=== PATIENT | female | born 1955 | race Caucasian/White ===

== ENCOUNTER 2016-12-24 08:19 | Emergency (ER) | payer SELFPAY ==
[2016-12-24 08:24] VITALS: BMI 33.5
--- NOTE | 2016-12-24 08:45 | DR.GENAD ---
HPI - PCP Primary Care Physician: BRIAN - HPI Comment HPI Comment: PATIENT FEELING SICK PAST 2 WEEKS. SHE IS WEAK AND GET COLD AND HOT CHILLS. COUGHING, PRODUCTIVE GREEN SPUTUM. NO DYSURIA. NAUSEATED BUT NOT VOMITING. POOR ORAL INTAKE. - Complaint/Symptoms Chief Complaint Doctors Comments: NAUSEA, DIARRHEA, BODY ACHES AND ABDOMINAL CRAMPING WITH COUGH FOR 2 WEEKS. Chief Complaint:: PT. C/O DIARRHEA, NAUSEA, CHILLS, BODY ACHES, NO APPEPTITE. - Nurses notes reviewed Nurses Notes Review: Yes - Source History Provided: Patient - Mode of Arrival Mode of Arrival: Ambulatory - Timing Onset of Chief Complaint: 12/22/16 Came on: Suddenly - Duration Duration: Constant Duration: Days - Severity Severity: Moderate PMH - PMH Past Medical History: Yes Past Medical History: Anxiety, Depression, Hypertension, Seizures Past Surgical History: Yes Surgical History: Tonsillectomy, Other Past Surgical History Comment: TUBAL LIGATION, MASS REMOVED FROM LEFT FRONTAL LOBE - Family History History of Family Medical Conditions: Yes Family Medical History: Diabetes Mellitus, [place], Coronary Artery Disease, Hypertension - Social History Does patient currently use any type of tobacco product: No Have you used tobacco products in the last 12 months: No Type of Tobacco Use: None Does any household member use tobacco: No Alcohol Use: None Do you use any recreational Drugs:: No Lives With: Significant Other Lives Where: Home - infectious screening In the last 2 months have you had wt loss of >10#?: NO Have you had fever, night sweats or hemotysis?: No Have you traveled outside the country in the last 6 months?: No Isolation: Standard ROS - Review of Systems Constitutional: Chills, Weakness, Fatigue, Loss of Appetite. negative: Fever Eyes: No Symptoms Reported. negative: Eye Pain, Discharge ENTM: Nose Discharge, Nose Congestion. negative: Ear Pain, Throat Pain Respiratoy: Productive Cough. negative: Short of Breath, Wheezing, Hemoptysis Cardiovascular: No Symptoms Reported. negative: Chest Pain, Edema Gastrointestinal/Abdominal: Abdominal Pain, Diarrhea, Nausea. negative: Constipation, Vomiting Genitourinary: No Symptoms Reported. negative: Dysuria, Frequency, Hematuria Neurological: Headache, Weakness, Dizziness Musculoskeletal: Joint Pain, Muscle Pain Integumentary: No Symptoms Reported Hematologic/Lymphatic: Easy Bruising Endocrine: No Symptoms Reported All Other Systems: Reviewed and Negative PE - Vital Signs Vitals: Temperature 98.5 F Pulse Rate 77 Respiratory Rate 20 Blood Pressure [Right Arm] 130/65 Blood Pressure [Left Arm] 160/110 Blood Pressure 214/93 O2 Sat by Pulse Oximetry 100 - General Limitations: No Limitations General Appearance: Alert - Head Head Exam: Normal Inspection - Eyes Eye exam: Normal Appearance - ENT ENT Exam: Normal External Ear Exam External Ear Exam: Normal External Inspection TM/Canal Exam: Bilateral Normal Nose Exam: Normal Nose Exam Mouth Exam: Normal Inspection Throat Exam: Normal Inspection - Neck Neck Exam: Trachea Midline - Chest Chest Inspection: Symmetric Chest Wall Rise - Respiratory Respiratory Exam: Normal Lung Sounds Bilat Respiratory Exam: Bilateral Clear to Auscultation - Cardiovascular Cardiovascular Exam: Regular Rate, Normal Rhythm, Normal Heart Sounds - Abdominal Exam Abdominal Exam: Normal Bowel Sounds, Soft, Tenderness Abdominal Tenderness: Diffuse, Mild - Extremities Extremities Exam: Normal Inspection - Back Back Exam: Normal Inspection - Neurologic Neurological Exam: Alert, Oriented X3 - Psychiatric Psychiatric Exam: Anxious - Skin Skin Exam: Normal Color MDM - Additional Information Additional Information Obtained From: Family - Differential Diagnosis Differential Diagnosis: DIARRHEA, DEHYDRATION, ABDOMINAL PAIN, BRONCHITIS, PNEUMONIA Course - Treatment Treatment: SEE ORDERS. NS 1L IV BOLUS IN ED. HISTORY HTN. MORNING MED DUE GIVEN IN ED. BP IMPROVED. - Education/Counseling Education/Counseling: Patient, Family, Education Educated On: Treatment, Diagnosis, Needs for Follow Up ROR - Labs Reviewed Laboratory Results Reviewed?: Yes Result Diagrams: 12/24/16 08:54 12/24/16 08:54 Laboratory: WBC 6.8 X10^3/uL (3.6-10.0) 12/24/16 08:54 RBC 4.66 X10^6/uL (3.5-5.4) 12/24/16 08:54 Hgb 13.9 g/dL (12.0-16.0) 12/24/16 08:54 Hct 39.9 % (36.0-47.0) 12/24/16 08:54 MCV 85.7 fL (80.0-100.0) 12/24/16 08:54 MCH 30.0 pg (27.0-34.0) 12/24/16 08:54 MCHC 35.0 g/dL (33.0-35.0) 12/24/16 08:54 RDW 14.1 % (11.6-16.5) 12/24/16 08:54 Plt Count 232 X10^3/uL (150.0-450.0) 12/24/16 08:54 MPV 8.2 fL (7.4-11.0) 12/24/16 08:54 Neut % 73.4 % (42.0-75.0) 12/24/16 08:54 Lymph % 19.4 % (21.0-51.0) L 12/24/16 08:54 [place] % 5.2 % (0.0-13.0) 12/24/16 08:54 Eos % 0.9 % (0.9-2.9) 12/24/16 08:54 Baso % 1.1 % (0.2-1.0) H 12/24/16 08:54 Neut # 5.0 x10^3/uL (2.2-4.8) H 12/24/16 08:54 Lymph # 1.3 X10^3/uL (1.3-2.9) 12/24/16 08:54 [place] # 0.4 x10^3/uL (0.3-0.8) 12/24/16 08:54 Eos # 0.1 x10^3/uL (0.0-0.2) 12/24/16 08:54 Baso # 0.1 X10^3/uL (0.0-0.1) 12/24/16 08:54 Absolute Nucleated RBC 0.1 /100WBC 12/24/16 08:54 Sodium 144 mmol/L (136-145) 12/24/16 08:54 Corrected Sodium 144 mmol/L (136-145) 12/24/16 08:54 Potassium 3.5 mmol/L (3.5-5.1) 12/24/16 08:54 Chloride 107 mmol/L (98-107) 12/24/16 08:54 Carbon Dioxide 27.5 mmol/L (21-32) 12/24/16 08:54 BUN 8 mg/dL (7-18) 12/24/16 08:54 Creatinine 0.66 mg/dL (0.55-1.02) 12/24/16 08:54 Est GFR (MDRD) Af Amer > 60 (>60) 12/24/16 08:54 Est GFR (MDRD) Non-Af > 60 (>60) 12/24/16 08:54 Glucose 114 mg/dL (65-99) H 12/24/16 08:54 Calcium 9.2 mg/dL (8.5-10.1) 12/24/16 08:54 Corrected Calcium TNP 12/24/16 08:54 Total Bilirubin 0.60 mg/dL (0.2-1.0) 12/24/16 08:54 AST 21 Units/L (15-37) 12/24/16 08:54 ALT 19 Units/L (12-78) 12/24/16 08:54 Alkaline Phosphatase 139 Units/L (46-116) H 12/24/16 08:54 Total Protein 8.3 g/dL (6.4-8.2) H 12/24/16 08:54 Albumin 4.2 g/dL (3.4-5.0) 12/24/16 08:54 Globulin 4.1 g/dL (2.5-4.5) 12/24/16 08:54 Albumin/Globulin Ratio 1.0 Ratio (1.1-2.1) L 12/24/16 08:54 Amylase 40 Units/L (25-115) 12/24/16 08:54 Specimen Type Clean catch urine 12/24/16 09:01 Urine Color Yellow (YELLOW) 12/24/16 09:01 Urine Appearance Hazy (CLEAR) 12/24/16 09:01 Urine pH 9.0 (5.0 - 8.0) 12/24/16 09:01 Ur Specific [place] 1.020 (1.000-1.030) 12/24/16 09:01 Urine Protein Negative (NEGATIVE) 12/24/16 09:01 Urine Glucose (UA) Negative (NEGATIVE) 12/24/16 09:01 Urine Ketones Negative (NEGATIVE) 12/24/16 09:01 Urine Occult Blood 3+ (NEGATIVE) 12/24/16 09:01 Urine Nitrite Negative (NEGATIVE) 12/24/16 09:01 Urine Bilirubin Negative (NEGATIVE) 12/24/16 09:01 Urine Urobilinogen Normal (NORMAL) 12/24/16 09:01 Ur Leukocyte Esterase Negative (NEGATIVE) 12/24/16 09:01 Urine RBC 2-3 /HPF (NEGATIVE) 12/24/16 09:01 Urine WBC 0 /HPF (NEGATIVE) 12/24/16 09:01 Ur Squamous Epith Cells Rare /HPF (NEGATIVE) 12/24/16 09:01 Urine Bacteria Negative /HPF (NEGATIVE) 12/24/16 09:01 Ur Culture Indicated? No/not indicated 12/24/16 09:01 - XRAY XRAY Interpreted by: Radiologist XRAY Findings: REPORT DISCUSS WITH PATIENT. - Diagnosis Discharge Problem: Diarrhea, Abdominal pain, Bronchitis - Discharge Plan Disposition: HOME, SELF-CARE Condition: Stable Prescriptions: Amoxicillin [Amoxil 875 mg] 875 mg PO BID #20 tab Diphenoxylate/Atropine [Lomotil] 1 tab PO TID PRN #15 tab PRN Reason: Ondansetron HCl [Zofran Tab 4 mg] 4 mg PO Q8H PRN #12 tab PRN Reason: Nausea/Vomiting - Follow ups/Referrals Follow ups/Referrals: Angel TORRES [Primary Care Provider] - 3 days - Instructions Instructions: Viral Gastroenteritis, Adult, [id number], Acute Bronchitis, Diarrhea, Adult, [id number] Additional Instructions: RETURN TO ED IF WORSE.
[2016-12-24] MEDS ORDERED: ZOFRAN INJ 4 MG VIAL ONE (08:56)
[2016-12-24] MEDS ORDERED: NS 1000 ML 1,000 ML ONE (08:56)
[2016-12-24 09:11] LABS: BASOPHILS # (AUTO) 0.1 X10^3/uL (0.0-0.1); BASOPHILS % (AUTO) 1.1 % (0.2-1.0); EOSINOPHILS # (AUTO) 0.1 x10^3/uL (0.0-0.2); EOSINOPHILS % (AUTO) 0.9 % (0.9-2.9); HEMATOCRIT 39.9 % (36.0-47.0); HEMOGLOBIN 13.9 g/dL (12.0-16.0); LYMPHOCYTES # (AUTO) 1.3 X10^3/uL (1.3-2.9); LYMPHOCYTES % (AUTO) 19.4 % (21.0-51.0); MEAN CORPUSCULAR VOLUME 85.7 fL (80.0-100.0); MEAN PLATELET VOLUME 8.2 fL (7.4-11.0); MONOCYTES # (AUTO) 0.4 x10^3/uL (0.3-0.8); MONOCYTES % (AUTO) 5.2 % (0.0-13.0); NEUTROPHILS % (AUTO) 73.4 % (42.0-75.0); PLATELET COUNT 232 X10^3/uL (150.0-450.0); RED BLOOD COUNT 4.66 X10^6/uL (3.5-5.4); RED CELL DISTRIBUTION WIDTH 14.1 % (11.6-16.5); WHITE BLOOD COUNT 6.8 X10^3/uL (3.6-10.0)
[2016-12-24] MEDS: NS 1000 ML 1,000 ML IV ONE (09:15)
[2016-12-24] MEDS: ZOFRAN INJ 4 MG VIAL IVP ONE (09:15)
--- NOTE | 2016-12-24 09:16 | RAD ---
HISTORY: Abdominal pain Study: Acute abdominal series Comparison: February 24, 2015 Findings: The trachea is midline. The cardiac silhouette is unremarkable. The lungs are clear without focal infiltrate or effusion. The bony thorax is unremarkable. Flat plate and upright evaluation of the abdomen demonstrates a normal bowel gas pattern. No pneumop eritoneum is identified.. No pathological soft tissue mass or calcification can be observed. The b mehul structures are grossly intact. IMPRESSION: 1. No acute cardiopulmonary disease. 2. No evidence for acute abdominal pathology identified. Reported By:
[2016-12-24 09:22] LABS: ALANINE AMINOTRANSFERASE 19 Units/L (12-78); ALBUMIN 4.2 g/dL (3.4-5.0); ALKALINE PHOSPHATASE 139 Units/L (46-116); AMYLASE 40 Units/L (25-115); ASPARTATE AMINO TRANSFERASE 21 Units/L (15-37); BLOOD UREA NITROGEN 8 mg/dL (7-18); CALCIUM 9.2 mg/dL (8.5-10.1); CARBON DIOXIDE 27.5 mmol/L (21-32); CHLORIDE 107 mmol/L (98-107); COR NA(FOR HYPERGLY) 144 mmol/L (136-145); CREATININE 0.66 mg/dL (0.55-1.02); GLUCOSE 114 mg/dL (65-99); SODIUM 144 mmol/L (136-145); TOTAL PROTEIN 8.3 g/dL (6.4-8.2); eGFR BLACK RACES > 60 (>60); eGFR NON BLACK RACES > 60 (>60)
[2016-12-24 09:24] LABS: BILIRUBIN,URINE NEGATIVE (NEGATIVE); BLOOD/HEMOGLOBIN,URINE 3+ (NEGATIVE); GLUCOSE, URINE NEGATIVE (NEGATIVE); KETONES,URINE NEGATIVE (NEGATIVE); LEUKOCYTE ESTERASE ,URINE NEGATIVE (NEGATIVE); NITRITES,URINE NEGATIVE (NEGATIVE); PROTEIN,URINE NEGATIVE (NEGATIVE); UROBILINOGEN,URINE NORMAL (NORMAL)
[2016-12-24 09:39] LABS: APPEARANCE,URINE HAZY (CLEAR); BACTERIA,URINE NEGATIVE /HPF (NEGATIVE); COLOR,URINE YELLOW (YELLOW); SQUAMOUS EPITHELIAL CELL,UR RARE /HPF (NEGATIVE)
[2016-12-24] MEDS ORDERED: CATAPRES TAB 0.3 MG ONE (10:03)
[2016-12-24] MEDS ORDERED: TORADOL 30 MG VIAL ONE (10:03)
[2016-12-24] MEDS: CATAPRES TAB 0.3 MG PO ONE (10:10)
[2016-12-24] MEDS: ZESTRIL TAB 10 MG PO ONE (10:10)
[2016-12-24] MEDS: TORADOL 30 MG VIAL IVP ONE (10:11)
[2016-12-24 10:44] VITALS: BP 130/65
== END 2016-12-24 10:48 | disposition home or self-care (01) ==
LOC: ER 08:32
DX: R19.7 Diarrhea, unspecified (principal); J40 Bronchitis, not specified as acute or chronic; R10.84 Generalized abdominal pain
CPT/HCPCS: 36415; 74022; 80053; 81001; 82150; 85025; 96365; 96374; 96375; 99283; A4222; J1885; J2405